=== PATIENT | female | born 1990 | race Two or more races ===

== ENCOUNTER 2021-02-08 12:37 | Inpatient (IN) | payer OTHER ==
[~2021-02-08] VITALS: Ht 157.5 cm; Wt 3.6 kg
[2021-02-08] MEDS ORDERED: PRENATABS RX T1 EACH PO (14:28)
[2021-02-11] MEDS ORDERED: IBUPROFEN800 MG PO (13:12)
[2021-02-11] MEDS ORDERED: PERCOCET 5-3251 EACH PO (13:13)
== END 2021-02-11 13:29 | disposition home or self-care (01) | DRG 787 ==
LOC: SURG-SUITE 12:37 → LDR 12:37 → SURG-SUITE 16:44
PROVIDERS: ADMIT Obstetrics & Gynecology; ATTEND Obstetrics & Gynecology
PROC: 4A1HXFZ Monitoring of Products of Conception, Cardiac Rhythm, External Approach (ICD-10-PCS; 2021-02-08)
PROC: 10D00Z1 Extraction of Products of Conception, Low, Open Approach (ICD-10-PCS; principal; 2021-02-08 16:45)
DX: O64.1XX0 Obstructed labor due to breech presentation, not applicable or unspecified (principal); O41.03X0 Oligohydramnios, third trimester, not applicable or unspecified; Z3A.38 38 weeks gestation of pregnancy; Z37.0 Single live birth; Z20.822 Contact with and (suspected) exposure to COVID-19